=== PATIENT | male | born 1975 | race Caucasian/White ===

== ENCOUNTER 2020-02-27 15:44 | Emergency (ER) | payer BC ==
[2020-02-27] MEDS ORDERED: HYDROmorphone 1 MG/ML Syringe IM ONE (16:54)
--- NOTE | 2020-02-27 17:00 | EDM.PDOC ---
ED HPI GENERAL MEDICAL PROBLEM - General Chief Complaint: Back Pain or Injury Stated Complaint: BACK PAIN/RIGHT SIDE PAIN Time Seen by Provider: 02/27/20 16:27 Source of Information: Reports: Patient, Family () History Limitations: Reports: No Limitations - History of Present Illness INITIAL COMMENTS - FREE TEXT/NARRATIVE: Mr. Baldwin is a very pleasant 44-year-old man with a past medical history significant for untreated GERD and untreated schizophrenia, who states that he has a history of chronic/recurrent back pain, without prior medical evaluation. No prior back injury. He now presents to the ED stating that he developed lower right back pain that radiates to his right groin and down the medial aspect of his right thigh to his knee, starting either 02/23/2020 or , 02/24/2020. His pain is made worse with sitting, better if he is on his hands and knees. The patient also reports chronic generalized abdominal pain that he attributes to GERD. He also reports chronic/recurrent constipation. No dysuria. No recent cough, fever, chills, or diarrhea. No dyspnea, chest pain, palpitations, nausea, vomiting, recent weight gain or weight loss, recent bloody bowel movements or black bowel movements, recent joint aches, headaches, or rashes. Here in the ED, the patient is found to be hemodynamically stable, afebrile, saturating 97% on room air. The patient does not have a PCP or Psychiatrist. He did not receive an influenza vaccine this season, and declined an offer to receive one here today. Right Lower Back Pain Score (Numeric/FACES): 10 - Related Data Allergies Allergy/AdvReac Type Severity Reaction Status Date / Time Penicillins Allergy Hives Verified 02/27/20 15:56 Home Meds: Home Meds Omeprazole Magnesium [Prilosec Otc] 20 mg PO DAILY 02/27/20 [History] Orphenadrine [Norflex] 1 tab PO Q12H PRN #14 tab.er 02/27/20 [Rx] Past Medical History Gastrointestinal History: Reports: GERD Psychiatric History: Reports: Anxiety (untreated), Schizophrenia (untreated) Social & Family History - Family History Family Medical History: Noncontributory - Tobacco Use Smoking Status *Q: Never Smoker Second Hand Smoke Exposure: No - Caffeine Use Caffeine Use: Reports: Coffee - Alcohol Use Alcohol Use History: No - Recreational Drug Use Recreational Drug Use: Yes Drug Use in Last 12 Months: Yes Recreational Drug Type: Reports: Marijuana/Hashish (smokes daily) - Living Situation & Occupation Living situation: Reports: , with Spouse Occupation: Employed ([employer]) ED ROS GENERAL - Review of Systems Review Of Systems: Comprehensive ROS is negative, except as noted in HPI. ED EXAM,LOWER BACK PAIN/INJURY - Physical Exam Exam: See Below Exam Limited By: No Limitations General Appearance: Alert, WD/WN, No Apparent Distress Eye Exam: Bilateral Eye: EOMI, Normal Inspection Ears: Normal External Exam, Hearing Grossly Normal Nose: Normal Inspection Throat/Mouth: Normal Inspection, Normal Lips, Normal Voice, No Airway Compromise Head: Atraumatic, Normocephalic Neck: Normal Inspection, Supple, Non-Tender, Full Range of Motion Respiratory/Chest: No Respiratory Distress, Lungs Clear, Normal Breath Sounds, No Accessory Muscle Use Cardiovascular: Normal Peripheral Pulses, Regular Rate, Rhythm, No Edema, No Gallop, No JVD, No Murmur, No Rub GI/Abdominal: Normal Bowel Sounds, Soft, Non-Tender, No Organomegaly, No Distention, No Abnormal Bruit, No Mass (Male) Exam: Deferred Rectal (Males) Exam: Deferred Back Exam: Normal Inspection, Full Range of Motion, CVA Tenderness (R), Other ( The patient is able to flex his spine to 90 degrees, and extend his spine to about 30 degrees. He is able to tilt his spine to the left to about 45 degrees , but only to about 20 degrees to the right. He is able to twist his spine to about 45 degrees bilaterally. Unilateral knee bend is negative bilaterally. Straight leg raise is negative to about 80 degrees bilaterally, limited only by lower back pain, with no radicular symptoms.). No: CVA Tenderness (L), Paraspinal Tenderness, Vertebral Tenderness Extremities: Normal Inspection, Normal Range of Motion, Non-Tender, No Pedal Edema, Normal Capillary Refill Neurological: Alert, Normal Dorsiflexion, Normal Plantar Flexion, Normal Gait, No Motor/Sensory Deficits, Oriented x 3 Psychiatric: Normal Affect Skin Exam: Warm, Dry, Intact, Normal Color, No Rash Course - Vital Signs Last Recorded V/S: Last Vital Signs Temp 36.5 C 02/27/20 15:53 Pulse 87 02/27/20 15:53 Resp 19 02/27/20 15:53 BP 143/101 H 02/27/20 15:53 Pulse Ox 97 02/27/20 15:53 - Orders/Labs/Meds Labs: Laboratory Tests 02/27/20 Range/Units 16:10 Urine Color Yellow (Yellow) Urine Appearance Clear (Clear) Urine pH 6.0 (5.0-8.0) Ur Specific [place] > or = 1.030 (1.005-1.030) Urine Protein Negative (Negative) Urine Glucose (UA) Negative (Negative) Urine Ketones Negative (Negative) Urine Occult Blood Negative (Negative) Urine Nitrite Negative (Negative) Urine Bilirubin Negative (Negative) Urine Urobilinogen 0.2 (0.2-1.0) Ur Leukocyte Esterase Negative (Negative) Meds: Medications Discontinued Medications Generic Name Dose Route Start Last Admin Trade Name Freq PRN Reason Stop Dose Admin Hydromorphone HCl 1 mg 02/27/20 16:54 02/27/20 17:00 Dilaudid IM 02/27/20 16:55 1 mg ONETIME ONE Administration Orphenadrine Citrate 100 mg 02/27/20 18:13 Norflex PO 02/27/20 18:14 ONETIME STA - Re-Assessments/Exams Free Text/Narrative Re-Assessment/Exam: 02/27/20 16:55 The etiology of the patient's back, groin, and lower extremity pain is not immediately clear. He has right CVA tenderness, raising the concern for a ureterolith, but at the same time he denies dysuria, and his urinalysis is completely unremarkable. Nevertheless, I have ordered a CT of his abdomen and pelvis without contrast to evaluate for a ureterolith. If that returns negative , then I will have to conclude that his pain is due to a muscle spasm in his back. His examination is not consistent with a herniated intervertebral disc. In the meantime, the patient will be given a single shot of IM Dilaudid. He states that he does not trust pills, therefore I have not ordered any Flomax or Norflex, however, if his CT returns negative, I will need to work with the patient to see what he would be willing to take for back pain. 02/27/20 18:06 CT of the abdomen and pelvis without contrast as read by Dr. Pinto as: 1. Findings as noted above. 2. Nothing acute is appreciated on CT study [sic] abdomen and pelvis. Specifically no ureteral dilatation or ureteral stone is seen. 02/27/20 18:14 CT results discussed with the patient (his is not currently present). As above, I suspect that the patient's back pain is due to muscle spasm, not due to a herniated intervertebral disc. The patient agreed to start on Norflex, and I will submit a prescription for the same. I am recommending that he take that along with [id number] ibuprofen. Departure - Departure Time of Disposition: 18:14 Disposition: Home, Self-Care 01 Condition: Good Clinical Impression: Spasm of muscle of lower back - Discharge Information *PRESCRIPTION DRUG MONITORING PROGRAM REVIEWED*: Not Applicable *COPY OF PRESCRIPTION DRUG MONITORING REPORT IN PATIENT [place]: Not Applicable Prescriptions: Orphenadrine [Norflex] 1 tab PO Q12H PRN #14 tab.er PRN Reason: Muscle Spasm Referrals: PCP,None [Primary Care Provider] - Migue Villarreal MD [Physician] - Forms: ED Department Discharge Additional Instructions: You were seen in the emergency room for lower right back pain that radiates to your right groin and down your right thigh. Work-up in the ER included a urinalysis and a CT scan of your abdomen and pelvis , both of which returned unremarkable. You do not have a urinary tract infection or kidney stone. Based on your history, physical exam, and ER tests, your pain is most likely due to a muscle spasm. You have been started on the muscle relaxant Norflex, and a prescription for Norflex has been sent to the [facility], located at [address] [place] [address]. Take 1 tablet of Norflex every 12 hours, starting tomorrow morning , 02/28/2020, as prescribed. Norflex works well with ibuprofen. Take 3 tablets (600 mg) 3 8 hours, with food , as needed for discomfort. If your pain fails to improve within the next few days, please follow-up with Dr. Migue Pandey, or one of the other providers, in the clinic. If any other problems, please do not hesitate to return to the ER. Sepsis Event Note - Evaluation Sepsis Screening Result: No Definite Risk - Focused Exam Vital Signs: Vital Signs Temp Pulse Resp BP Pulse Ox 02/27/20 15:53 36.5 C 87 19 143/101 H 97 Date Exam was Performed: 02/27/20 Time Exam was Performed: 18:18
--- NOTE | 2020-02-27 17:51 | CT ---
CT abdomen and pelvis Technique: Multiple axial images were obtained from above the dome of the diaphragm inferiorly through the pubic symphysis. Intravenous contrast and oral contrast not utilized. Study performed as a ureteral stone protocol. Comparison: No prior CT abdomen and pelvis exam. Findings: Visualized lung bases show nothing acute. Liver contains no focal abnormality. Spleen appears within normal limits. Adrenal glands show no nodule. Pancreas shows no discrete abnormality. Gallbladder contains no calcified gallstones. Aorta shows no aneurysm. Appendix is seen which is normal. No pelvic mass or adenopathy is noted. Mild sigmoid diverticulosis is seen without diverticulitis. Kidneys show no hydronephrosis. Cyst is noted within the left kidney measuring 1.7 cm. No ureteral dilatation or ureteral stone is seen. Bone window settings were reviewed which show nothing acute. Moderate degenerative change is seen within both hips. Impression: 1. Findings as noted above. 2. Nothing acute is appreciated on CT study abdomen and pelvis. Specifically no ureteral dilatation or ureteral stone is seen. Diagnostic code #2 Study was dictated in MDT
[2020-02-27] MEDS ORDERED: Orphenadrine 100 MG Tab.ER PO STA (18:13)
== END 2020-02-27 18:25 | disposition home or self-care (01) ==
LOC: JD.ED 15:44
DX: M62.830 Muscle spasm of back (principal); K21.9 Gastro-esophageal reflux disease without esophagitis; Z88.0 Allergy status to penicillin; Z79.899 Other long term (current) drug therapy
CPT/HCPCS: 74176; 81003; 96372; 99284; A9270; J1170; 99283